=== PATIENT | female | born 1945 | race Caucasian/White ===

== ENCOUNTER 2024-12-23 10:31 | Emergency (ER) | payer OTHER, SELFPAY ==
[2024-12-23 10:34] VITALS: BP 149/70
[2024-12-23 11:07] VITALS: BMI 34.9
--- NOTE | 2024-12-23 11:38 | ED.GENMED ---
History of Present Illness
General
Chief Complaint: Cough
Source: patient
Exam Limitations: none
Time Seen by Provider: 12/23/24 10:59
Nursing documentation reviewed up to this point in time: agreed with
History of Present Illness
History of Present Illness:
79-year-old female with past medical history of hypertension, hyperlipidemia, coronary artery disease who presents emergency department today with concerns of cough for the past 5 days. Patient states that when this for started she originally
presented to urgent care and she had physical exam was started on doxycycline. Patient is still currently on doxycycline. She feels like her cough is looking better. She is also taking Tessalon Perles and feels like this is not helping her cough.
She denies trouble swallowing, shortness of breath, sore throat, abdominal pain, chest pain. She also notes some mild patient with congestion and sensation of fullness in her ears. She denies any neck pain. She denies any headaches. She denies
any fevers or chills.
Review of Systems
Review of Systems
All Other Systems: ROS reviewed and negative except as documented in HPI and ROS
Phy Exam
Physical Exam
Physical Exam:
General: Patient is well appearing and in no acute distress; non-toxic
Skin: Warm and dry, no rashes or lesions
Head: Normocephalic, atraumatic
Eyes: Sclera non-icteric. EOMs intact.
Throat: No pharyngeal erythema, uvula midline
Cardiac: Regular rate and rhythm, no murmur
Peripheral Vascular: No lower extremity swelling or edema
Pulm: Normal respiratory effort, no wheezes, rales, or rhonchi
Abdomen: No abdominal tenderness to palpation
Neuro: CN II-XII intact, no focal neurologic deficits.
Psychiatric: Appropriate mood and affect.
Course
Orders/Labs/Results
Orders:
Orders
12/23/24 11:09
CXR2 [CR Chest - 2 Views ] Urgent
Comment:
Reason For Exam: cough
12/23/24 11:25
COVID-19 Antigen Urgent
Source: Nasal Swab
Complete Blood Count/With Diff Urgent
Comprehensive Metabolic Panel Urgent
Influenza A+B Rapid Molecular Urgent
JONAH Source: Nasal Swab
Specimen Description:
Abnormal Lab Results
12/23/24
11:25
WBC 4.7 L 10^3/uL
(4.8-10.8)
MCH 32.0 H pg
(27.0-31.0)
Plt Count 121 L 10^3/uL
(130-400)
MPV 10.5 H fL
(7.4-10.4)
Absolute Lymphs (auto) 0.9 L 10^3/uL
(1.2-3.4)
Lymphocytes % 19.7 L %
(20.5-51.1)
Monocytes % 9.8 H %
(1.7-9.3)
Sodium 134 L mmol/L
(135-145)
Glucose 163 H mg/dl
(70-99)
AST 46 H U/L
(14-36)
Total Protein 6.0 L g/dl
(6.3-8.2)
12/23/24 11:25
12/23/24 11:25
Vital Signs
Initial and Last Documented VS:
Initial Vital Signs
Temp Pulse Resp BP Pulse Ox
98.3 F 75 18 149/70 97
12/23/24 10:34 12/23/24 10:34 12/23/24 10:34 12/23/24 10:34 12/23/24 10:34
Last Documented Vital Signs
Temp Pulse Resp BP Pulse Ox
98.3 F 75 18 149/70 97
12/23/24 10:34 12/23/24 10:34 12/23/24 10:34 12/23/24 10:34 12/23/24 10:34
MDM/Problems Addressed
Differential Diagnosis Includes:
ddx include URI, pneumonia, bronchitis, GERD
MDM/Problems Addressed:
79 y/o female presents to the emergency department today with concerns of persistent cough for the past week. She denies any fever or chills, chest pain. She reports that she went to and was started on doxycycline without relief. Here in the ER
she is well-appearing on exam in no acute distress she is not hypoxic, she is afebrile. Her lungs are clear to auscultation bilaterally. She did test positive for flu. Her chest x-ray was negative for pneumonia. I advised stopping the
doxycycline. Patient is out of the window for Tamiflu. Talked about supportive care did offer inhaler to see if this would help with her cough. Patient stable for discharge.
Chronic conditions affecting care:
htn, GERD, HLP
*Pulse Oximetry
Patient hypoxic: no
*Critical Care Note
Total Time (30-74mins, 75-104mins- exclusive of procedures): Not Applicable
Data Reviewed
Review of Other/Old Records Reveals: Records (Reviewed [facility] no previous ER physician documentation to review)
Source: patient and records
ED Attending Note
-
Portions of this chart may have been created with voice recognition software.� Occasional wrong word or��sound alike� substitutions may have occurred due to the inherent limitations of voice recognition software.
Discharge Plan
Departure
Patient Disposition: Home (Routine Discharge)
Date of Disposition: 12/23/24
Time of Disposition: 12:51
Patient with high blood pressure during this ER visit?: Yes
Condition: Good
Discharge Problem:
Influenza A
Instructions: Viral Upper Respiratory Infection, Adult (DC), BLOOD PRESSURE
Prescriptions:
New
albuterol sulfate 90 mcg/actuation HFA aerosol inhaler
2 inh inhalation Q4H PRN (Reason: shortness of breath or wheezing) Qty: 6.7 0RF
Referrals:
Katie,Berto, DO [Family Provider] -
Activity Restrictions/Additional Instructions:
Albuterol inhaler has been sent to your pharmacy. This may help with your cough. Please follow-up with your primary care provider.
Your chest x-ray does not reveal any evidence of pneumonia. You can stop the doxycycline.
PLEASE RETURN TO THE EMERGENCY DEPARTMENT SHOULD YOU DEVELOP CHEST PAIN, SHORTNESS OF BREATH, FEVERS OR CHILLS, NAUSEA OR VOMITING, BELLY PAIN, DIZZINESS OR LIGHTHEADEDNESS, OR ANY OTHER SIGNS OR SYMPTOMS WORRISOME TO YOU.
Interventions
Interventions:
*Risk Screen - Suicide Last Done: 12/23/24 10:34
*General Assessment Last Done: 12/23/24 10:34
*Neglect/Abuse Screening Last Done: 12/23/24 10:34
ED- Fall Risk Assessment Last Done: 12/23/24 11:08
*ED COVID-19 Vaccine History Last Done: 12/23/24 11:08
*Nursing Disposition Last Done: 12/23/24 12:57
ED- Pulmonary Assessment Last Done: 12/23/24 11:08
Discharge Date and Time
Discharge Date/Time: 12/23/24 13:00
Print Language: KITTITIAN
[2024-12-23 11:53] LABS: % Basophils 0.2 % (0-2); % Eosinophils 0.2 % (0-6); % Immature Granulocytes 0.4 % (0-0.5); % Lymphocytes 19.7 % (20.5-51.1); % Monocytes 9.8 % (1.7-9.3); % Neutrophils 69.7 % (42.2-75.2); Absolute Lymphocytes 0.9 10^3/uL (1.2-3.4); Absolute Monocytes 0.5 10^3/uL (0.1-0.6); Absolute Neutrophils 3.3 10^3/uL (1.4-6.5); COVID-19 Antigen Negative (Negative); Hematocrit 42.2 % (37.0-47.0); Hemoglobin 14.8 g/dL (12.0-16.0); Mean Corp Hgb Conc. 35.1 g/dL (33.0-37.0); Mean Corpuscular Volume 91.3 fL (81.0-99.0); Nucleated Red Blood Cells % 0 %; Red Blood Cell Count 4.62 10^6/uL (4.20-5.40); White Blood Cell Count 4.7 10^3/uL (4.8-10.8)
[2024-12-23 12:03] LABS: ALT (SGPT) 34 U/L (0-35); AST (SGOT) 46 U/L (14-36); Albumin 3.8 g/dl (3.5-5.0); Alkaline Phosphatase 64 U/L (38-126); Blood Urea Nitrogen 11 mg/dl (7-17); Calcium 8.6 mg/dl (8.4-10.2); Carbon Dioxide 29 mmol/L (22-30); Chloride 100 mmol/L (98-107); Estimated Creatinine Clearance 65 ml/min; Glucose 163 mg/dl (70-99); Sodium 134 mmol/L (135-145); Total Bilirubin 0.6 mg/dl (0.2-1.3); eGFR > 60.00
[2024-12-23 12:33] LABS: Mean Platelet Volume 10.5 fL (7.4-10.4); Platelet Count 121 10^3/uL (130-400)
== END 2024-12-23 13:00 | disposition home or self-care (01) ==
LOC: EMR 10:31
PROVIDERS: Physician Assistant; EMERGENCY PHYSICIAN Emergency Medicine; FAMILY PHYSICIAN Family Medicine
DX: J10.1 Influenza due to other identified influenza virus with other respiratory manifestations (principal); I10 Essential (primary) hypertension; E78.5 Hyperlipidemia, unspecified; I25.10 Atherosclerotic heart disease of native coronary artery without angina pectoris; K21.9 Gastro-esophageal reflux disease without esophagitis; Z11.52 Encounter for screening for COVID-19
CPT/HCPCS: 99284; 71046; 80053; 85025; 87502; 87811